=== PATIENT | female | born 1995 | race Caucasian/White ===

== ENCOUNTER 2017-03-06 04:07 | Emergency (ER) | payer SELFPAY ==
[~2017-03-06] VITALS: Ht 170.2 cm; Wt 97.7 kg
[2017-03-06 05:20] LABS: CHLORIDE 110 mEq/L (99-109); POTASSIUM 3.9 mEq/L (3.7-5.4); SODIUM 138 mEq/L (136-147)
[2017-03-06 05:21] LABS: GLUCOSE 103 mg/dL (70-99)
[2017-03-06 05:23] LABS: ANION GAP 12 MEQ/L (2-14)
[2017-03-06 05:25] LABS: GFR ESTIMATE (CALCULATED) > 59 mL/min/
[2017-03-06 05:26] LABS: UREA NITROGEN (BUN) 9 mg/dL (9-23)
[2017-03-06 05:31] LABS: HEMATOCRIT 39.9 % (36.0-46.0); MCH 31.6 PG (29.0-34.0); MCHC 34.6 G/DL (30.0-36.0); MCV 91.3 FL (83-99); PLATELET COUNT 263 K/uL (156-360); RBC DIS.WIDTH-CV 11.5 % (11.8-14.6); RBC DIS.WIDTH-SD 38.8 % (39-53); RED BLOOD COUNT 4.37 M/uL (3.80-5.20); WHITE BLOOD COUNT 9.9 K/uL (4.1-10.2)
[2017-03-06 05:34] LABS: QUANTITATIVE HCG < 4.0 MIU/ML
[2017-03-06 05:35] LABS: ADD MIUA? YES; BILIRUBIN NEGATIVE; BLOOD MODERATE; COLOR STRAW ((YELLOW)); GLUCOSE (STRIP) NEGATIVE; KETONES NEGATIVE; LEUKOCYTES NEGATIVE; NITRITE NEGATIVE; PROTEIN (STRIP) NEGATIVE; SPECIFIC GRAVITY 1.005 (1.000-1.030); UROBILINOGEN 0.2 MG/DL (0.2-1.0)
[2017-03-06 05:37] LABS: BACTERIA RARE /HPF; EPITHELIAL CELLS RARE /HPF; MUCUS TRACE /LPF; RED BLOOD CELLS 0-5 /HPF (0-5); UCUL ADDED? NO; WHITE BLOOD CELLS 0-5 /HPF (0-5)
[2017-03-06 05:46] LABS: AMPHETAMINE NEGATIVE (500 ng/mL); BARBITURATES NEGATIVE (200 ng/mL); BENZODIAZEPINES NEGATIVE (150 ng/mL); COCAINE NEGATIVE (150 ng/mL); INTERNAL CONTROLS VALID? YES; METHADONE NEGATIVE (200 ng/mL); METHAMPHETAMINE NEGATIVE (500 ng/mL); OPIATES (MORPHINE) NEGATIVE (100 ng/mL); OXYCODONE NEGATIVE (100 ng/mL); PHENCYCLIDINE NEGATIVE (25 ng/mL); PROPOXYPHENE NEGATIVE (300 ng/mL); THC CANNABINOIDS NEGATIVE (50 ng/mL); TRICYCLIC ANTIDEPRESSANTS NEGATIVE (300 ng/mL)
[2017-03-06 06:01] VITALS: BP 126/74
[2017-03-06 06:04] LABS: SERUM ETHYL ALCOHOL 131 mg/dL
== END 2017-03-06 06:01 | disposition home or self-care (01) ==
LOC: EME 04:07
PROVIDERS: Emergency Medicine
DX: F10.129 Alcohol abuse with intoxication, unspecified (principal); R41.82 Altered mental status, unspecified; F17.200 Nicotine dependence, unspecified, uncomplicated
CPT/HCPCS: 80048; 81003; 84702; 85027; 99281; 99285; G0480